=== PATIENT | male | born 1940 | race Caucasian/White ===

== ENCOUNTER 2023-02-25 13:25 | Outpatient (CLI) | payer MEDICARE | END 2023-02-25 13:26 | disposition home or self-care (01) | LOC: RAD 13:25 | PROVIDERS: ATTEND Family Medicine | DX: R05.1 Acute cough (principal); J98.4 Other disorders of lung | CPT/HCPCS: 36415; 71046; 80053; 80061; 81001; 84443; 85025; G0103 ==

== ENCOUNTER 2023-03-14 16:24 | Outpatient (CLI) | payer MEDICARE | END 2023-03-14 16:25 | disposition home or self-care (01) | LOC: SCSRAD 16:24 | PROVIDERS: ATTEND Family Medicine | DX: R91.8 Other nonspecific abnormal finding of lung field (principal); J98.4 Other disorders of lung | CPT/HCPCS: 71046 ==

== ENCOUNTER 2023-07-09 10:53 | Outpatient (CLI) | payer MEDICARE ==
[~2023-07-09 10:53] MED LIST: Iopamidol-370 76% 500 ML MDV (1 ML CHARGE) ONE
== END 2023-07-09 10:54 | disposition home or self-care (01) ==
LOC: BICCT 10:53
PROVIDERS: ATTEND Family Medicine
DX: R91.1 Solitary pulmonary nodule (principal)
CPT/HCPCS: 71260; 82565

== ENCOUNTER 2023-08-19 08:39 | Day surgery (SDC) | payer MEDICARE ==
[2023-08-19 08:30] LABS: #Basophils 0.1 thou/uL (0.0-0.2); #Eosinphils 0.2 thou/uL (0.0-0.7); #Monocytes 0.8 thou/uL (0.11-0.59); #Neutrophils 4.6 thou/uL (1.40-6.50); %Basophils 0.7 % (0.0-1.0); %Lymphocytes 33.3 % (21.0-51.0); %Monocytes 9.3 % (0.0-10.0); %Neutrophils 54.6 % (42.0-75.0); Hematocrit 43.7 % (42.0-52.0); Hemoglobin 15.2 g/dL (14.0-18.0); Mean Corpuscular HGB CONC 34.8 g/dL (32.0-36.0); Mean Corpuscular Hemoglobin 32.3 pg (27.0-31.0); Mean Platelet Volume 8.6 fL (7.4-10.4); Platelet Count 126 10x3/uL (130-400); RBC Distribution Width 12.7 % (11.5-14.5); White Blood Cell (WBC) Count 8.4 10x3/uL (4.8-10.8)
[2023-08-19 09:19] LABS: PTT 36.6 sec (22.9-36.1)
[2023-08-19 09:20] LABS: INR-International Normal Ratio 1.1; Prothrombin Time 13.8 sec (12.0-14.7)
[2023-08-19 09:57] VITALS: BP 166/98; TEMP 97.8
[2023-08-19] MEDS ORDERED: Lidocaine 1% PF 5 ML VIAL ONE (10:02)
[2023-08-19] MEDS ORDERED: fentaNYL 50 mcg/mL 1 mL Vial ONE (10:02)
[2023-08-19] MEDS ORDERED: Midazolam HCl 2 mg/2 ml Vial ONE (10:02)
[2023-08-19] MEDS ORDERED: Sodium Bicarbonate 0.5 MEQ/ML SDV 10 ML ONE (10:02)
[2023-08-19] MEDS ORDERED: FLU VACC QS2023(65UP)/MF59C/PF 60 MCG/0.5 ML SYRINGE IM ONE (14:00)
== END 2023-08-19 14:15 | disposition home or self-care (01) ==
LOC: CT 08:39
PROVIDERS: ATTEND Student in an Organized Health Care Education/Training Program
PROC: 0BBG3ZX Excision of Left Upper Lung Lobe, Percutaneous Approach, Diagnostic (ICD-10-PCS; principal; 2023-08-19)
DX: C34.12 Malignant neoplasm of upper lobe, left bronchus or lung (principal); I10 Essential (primary) hypertension; J44.9 Chronic obstructive pulmonary disease, unspecified; E05.90 Thyrotoxicosis, unspecified without thyrotoxic crisis or storm; I25.10 Atherosclerotic heart disease of native coronary artery without angina pectoris; I71.40 Abdominal aortic aneurysm, without rupture, unspecified; Z90.49 Acquired absence of other specified parts of digestive tract; Z79.899 Other long term (current) drug therapy
CPT/HCPCS: 32408; 71045; 71046; 77012; 85025; 85610; 85730; 88333; 88334; J3010; 36415; 88305; J2250

== ENCOUNTER 2023-09-10 11:46 | Outpatient (CLI) | payer MEDICARE | END 2023-09-10 11:47 | disposition home or self-care (01) | LOC: LABBT 11:46 | PROVIDERS: ATTEND Student in an Organized Health Care Education/Training Program | DX: Z01.818 Encounter for other preprocedural examination (principal); C34.12 Malignant neoplasm of upper lobe, left bronchus or lung | CPT/HCPCS: 71046; 93005; 93010 ==

== ENCOUNTER 2023-09-10 12:00 | Inpatient (IN) | payer MEDICARE ==
[2023-09-10 14:17] LABS: Hematocrit 41.7 % (38.8-50.0); Hemoglobin 14.9 g/dL (13.5-17.5); Mean Corpuscular HGB CONC 35.7 g/dL (32.0-36.0); Mean Corpuscular Volume 89.7 fl (81.2-95.1); Mean Platelet Volume 9.3 fl (7.4-10.4); Platelet Count 152 10x3/uL (150-450); RBC Distribution Width 13.2 % (11.5-14.5); Red Blood Cell (RBC) Count 4.65 10x6/uL (4.32-5.72); White Blood Cell (WBC) Count 7.5 10x3/uL (3.5-10.5)
[2023-09-10 14:33] LABS: PTT 27.9 sec (22.0-33.0); Prothrombin Time 11.1 sec (9.5-12.1)
[2023-09-10 14:43] LABS: Anion Gap 13 mmol/L (10-20); BUN (Urea Nitrogen) 15 mg/dL (8.4-25.7); Calc. Creatinine Clearance 0 mL/min (70-130); Calcium 9.4 mg/dL (7.8-10.44); Carbon Dioxide 24 mmol/L (23-31); Chloride 108 mmol/L (98-107); Estimated GFR 77; Glucose 78 mg/dL (83-110); Sodium 141 mmol/L (136-145)
[2023-09-11] MEDS ORDERED: PROPOFOL 20 ML ONE (06:41)
[2023-09-11] MEDS ORDERED: Lidocaine 1% PF 5 ML VIAL ONE (06:41)
[2023-09-11] MEDS ORDERED: Ondansetron PF 4 MG/2 ML Vial ONE (06:41)
[2023-09-11] MEDS ORDERED: Dexamethasone 20 MG/5 ML VIAL ONE (06:41)
[2023-09-11] MEDS ORDERED: Fentanyl 250 MCG/5 ML VIAL ONE (06:41)
[2023-09-11] MEDS ORDERED: Rocuronium Bromide 10 MG/ML (10ML VIAL) ONE ×2 (06:42→10:33)
[2023-09-11] MEDS ORDERED: Lidocaine 2% 6 ML (Jelly) SYR ONE (06:45)
[2023-09-11] MEDS ORDERED: Bupivacaine 0.25% HCL 30 ML VIAL ONE (06:54)
[2023-09-11] MEDS ORDERED: EPINEPHrine 1 MG/ML VIAL ONE (06:54)
[2023-09-11] MEDS ORDERED: Naloxone HCl 0.4 mg/ml Vial IV PRN (07:06)
[2023-09-11] MEDS ORDERED: Ondansetron HCl/PF 4 MG/2 ML Vial IVP PRN (07:06)
[2023-09-11] MEDS ORDERED: diphenhydrAMINE 50 MG/ML VIAL IVP PRN (07:06)
[2023-09-11] MEDS ORDERED: Ondansetron PF 4 MG/2 ML Vial IVP PRN ×2 (07:06→12:37)
[2023-09-11] MEDS ORDERED: diphenhydrAMINE 50 MG/ML VIAL IM PRN (07:06)
[2023-09-11] MEDS ORDERED: HYDROmorphone 2 MG/ML VIAL SLOW IVP PRN (07:06)
[2023-09-11] MEDS ORDERED: Promethazine HCl 25 MG/ML VIAL IM PRN ×3 (07:06→12:37)
[2023-09-11] MEDS ORDERED: diphenhydrAMINE 25 MG CAP PO PRN (07:06)
[2023-09-11] MEDS ORDERED: Communication Order-Pharmacy FS SCH (07:15)
[2023-09-11] MEDS ORDERED: PHENYLEPHRINE-NS 100 MCG/ML 10 ML SYRINGE ONE (07:24)
[2023-09-11] MEDS ORDERED: Etomidate 40 MG (20 mL) VIAL ONE (07:24)
[2023-09-11] MEDS ORDERED: Sodium Chloride 0.9% 100 ML ONE (07:25)
[2023-09-11] MEDS ORDERED: CEFAZOLIN 2 GM VIAL ONE (07:25)
[2023-09-11] MEDS ORDERED: Ketamine In 0.9 % NaCl 50 MG/5 ML SYRINGE ONE (07:27)
[2023-09-11] MEDS ORDERED: ePHEDrine Sulfate 50 MG/10 ML VIAL ONE (07:59)
[2023-09-11] MEDS ORDERED: HYDROmorphone 2 MG/ML VIAL ONE (11:19)
[2023-09-11] MEDS ORDERED: SUGAMMADEX SODIUM 200 MG/2 ML VIAL ONE (12:18)
[2023-09-11] MEDS ORDERED: Acetaminophen 325 MG TAB PO PRN (12:37)
[2023-09-11] MEDS ORDERED: Ipratropium/Albuterol 3 ML NEB NEB PRN (12:37)
[2023-09-11] MEDS ORDERED: Morphine 4 MG/ML VIAL SLOW IVP PRN (12:37)
[2023-09-11] MEDS ORDERED: HYDROcodone/Acetaminophen 5/325 mg Tablet PO PRN (12:37)
[2023-09-11 14:46] VITALS: BMI 30.2
[2023-09-11] MEDS: CEFAZOLIN 2 GM in Sodium Chloride 0.9% 100 ML IVPB SCH (15:45)
[2023-09-11] MEDS: Ketorolac Tromethamine 30 MG (1 mL) VIAL IVP SCH (18:16)
[2023-09-11] MEDS: hydrALAZINE 20 MG/ML VIAL SLOW IVP PRN (18:18)
[2023-09-11] MEDS: Tamsulosin HCl 0.4 MG CAP PO SCH (20:23)
[2023-09-11] MEDS: Famotidine/PF 20 mg/2ml Vial SLOW IVP SCH (20:23)
[2023-09-11] MEDS: Lisinopril 10 MG TAB PO SCH (21:56)
[2023-09-12 05:20] LABS: Anion Gap 11 mmol/L (10-20); BUN (Urea Nitrogen) 17 mg/dL (8.4-25.7); Calc. Creatinine Clearance 71 mL/min (70-130); Calcium 8.2 mg/dL (7.8-10.44); Carbon Dioxide 23 mmol/L (23-31); Chloride 108 mmol/L (98-107); Estimated GFR 70; Glucose 108 mg/dL (83-110); Potassium 4.3 mmol/L (3.5-5.1); Sodium 138 mmol/L (136-145)
[2023-09-12 06:37] LABS: #Eosinphils 0.1 thou/uL (0.0-0.7); #Monocytes 1.3 thou/uL (0.11-0.59); #Neutrophils 7.7 thou/uL (1.40-6.50); %Basophils 0.4 % (0.0-1.0); %Eosinophils 0.7 % (0.0-10.0); %Lymphocytes 17.8 % (21.0-51.0); %Monocytes 11.3 % (0.0-10.0); %Neutrophils 69.4 % (42.0-75.0); Hematocrit 35.5 % (42.0-52.0); Hemoglobin 11.9 g/dL (14.0-18.0); Mean Corpuscular HGB CONC 33.5 g/dL (32.0-36.0); Mean Corpuscular Volume 95.4 fl (78.0-98.0); Mean Platelet Volume 9.2 fL (7.4-10.4); Platelet Count 127 10x3/uL (130-400); RBC Distribution Width 13.2 % (11.5-14.5); Red Blood Cell (RBC) Count 3.72 mill/uL (4.70-6.10)
[2023-09-12] MEDS ORDERED: Methocarbamol 500 MG TAB PO PRN (08:00)
[2023-09-14] MEDS: FENTANYL 500 MCG/10 ML VIAL 2,000 MCG in Sodium Chloride 0.9% 60 ML IV PRN (15:17)
[2023-09-15 16:20] VITALS: BP 125/70; TEMP 98.6
== END 2023-09-15 18:39 | disposition home or self-care (01) | DRG 164 ==
LOC: SURG A 09-11 05:41 → CCU 09-11 14:19 → EDSTATUS 09-11 15:34 → SURG A 09-13 11:23
PROVIDERS: ADMIT Student in an Organized Health Care Education/Training Program; ATTEND Student in an Organized Health Care Education/Training Program
PROC: 0BNL4ZZ Release Left Lung, Percutaneous Endoscopic Approach (ICD-10-PCS; principal; 2023-09-11)
PROC: 8E0W4CZ Robotic Assisted Procedure of Trunk Region, Percutaneous Endoscopic Approach (ICD-10-PCS; 2023-09-11)
PROC: 3E033XZ Introduction of Vasopressor into Peripheral Vein, Percutaneous Approach (ICD-10-PCS; 2023-09-11)
DX: C34.12 Malignant neoplasm of upper lobe, left bronchus or lung (principal); J93.9 Pneumothorax, unspecified; I10 Essential (primary) hypertension; J44.9 Chronic obstructive pulmonary disease, unspecified; E05.90 Thyrotoxicosis, unspecified without thyrotoxic crisis or storm; Z53.1 Procedure and treatment not carried out because of patient's decision for reasons of belief and group pressure; Z98.890 Other specified postprocedural states; Z87.891 Personal history of nicotine dependence; Z90.49 Acquired absence of other specified parts of digestive tract; Z82.49 Family history of ischemic heart disease and other diseases of the circulatory system
CPT/HCPCS: 36415; 71045; 80048; 85025; 85027; 85610; 85730; 86850; 86900; 86901; C1776; C2613; J0171; J0360; J0665; J1100; J1170; J1885; J2405; J2704; J3010; J3490; S0028

== ENCOUNTER 2024-01-30 08:52 | Outpatient (CLI) | payer MEDICARE ==
[2024-01-30] MEDS ORDERED: Iopamidol 370 76% 100 ML VIAL ONE (11:40)
== END 2024-01-30 08:53 | disposition home or self-care (01) ==
LOC: CT 08:52
PROVIDERS: ATTEND Radiology Radiation Oncology
DX: C34.10 Malignant neoplasm of upper lobe, unspecified bronchus or lung (principal); J92.9 Pleural plaque without asbestos; J98.4 Other disorders of lung; Z98.890 Other specified postprocedural states
CPT/HCPCS: 71260; 82565; Q9967

== ENCOUNTER 2024-08-09 08:22 | Outpatient (CLI) | payer MEDICARE | END 2024-08-09 08:23 | disposition home or self-care (01) | LOC: BICCT 08:22 | PROVIDERS: ATTEND Radiology Radiation Oncology | DX: C34.12 Malignant neoplasm of upper lobe, left bronchus or lung (principal); K76.89 Other specified diseases of liver; N28.1 Cyst of kidney, acquired; R91.1 Solitary pulmonary nodule; J98.4 Other disorders of lung | CPT/HCPCS: 36415; 71260; 82565 ==